=== PATIENT | female | born 1935 | race Caucasian/White ===

== ENCOUNTER 2017-12-02 10:31 | Outpatient (CLI) | payer MEDICARE, OTHER ==
--- NOTE | 2017-12-02 12:52 | ULT ---
PELVIC ULTRASOUND: CLINICAL HISTORY: Postmenopausal female with reported vaginal bleeding. TECHNIQUE: Borrego-scale and Doppler color-flow imaging performed of the pelvis with transabdominal imaging. FINDINGS: The uterus is atrophic. There is no obvious abnormal thickening of the endometrium, which is recorde d at 4 mm. The ovaries are not visualized. There is nonspecific linear increased echogenicity at th e region of the uterine fundus, nonspecific. IMPRESSION: 1. The endometrium measures 4 mm. No obvious abnormal thickening depicted. Given the history of va ginal bleeding, recommend gynecologic consultation. 2. Nonvisualization of the ovaries. 3. Nonspecific linear increased echogenicity at the expected region of the uterine fundus. This is nonanatomic in appearance and may relate to an artifact. Finding is not further characterized on the basis of this exam and is likely of doubtful clinical significance. POS: [facility]
== END 2017-12-02 10:32 | disposition home or self-care (01) ==
LOC: ULT 10:31
PROVIDERS: ATTEND Family Medicine
DX: N93.9 Abnormal uterine and vaginal bleeding, unspecified (principal)
CPT/HCPCS: 76856

== ENCOUNTER 2017-12-23 10:51 | Outpatient (CLI) | payer MEDICARE, OTHER | END 2017-12-23 10:52 | disposition home or self-care (01) | LOC: BICULT 10:51 | PROVIDERS: ATTEND Urology | DX: N28.1 Cyst of kidney, acquired (principal); R32 Unspecified urinary incontinence | CPT/HCPCS: 76770 ==

== ENCOUNTER 2018-06-13 10:11 | Inpatient (IN) | payer MEDICARE, OTHER ==
--- NOTE | 2018-06-13 11:08 | RAD ---
THREE VIEWS OF THE LEFT ANKLE: INDICATION: Fall with ankle pain and swelling. FINDINGS: There is a bimalleolar ankle fracture. The lateral malleolar fracture fragment is displaced posterio r and laterally 1 cortex width. The medial malleolar fracture fragment appears minimally displaced. No additional acute osseous abnormality is evident. IMPRESSION: Bimalleolar ankle fracture. POS: [facility]
[2018-06-13] MEDS ORDERED: Ketorolac Tromethamine 30 MG/ML VIAL ONE (11:17)
[2018-06-13 11:48] LABS: Hemoglobin 14.2 g/dL (12.0-16.0); Mean Corpuscular Hemoglobin 34.5 pg (27.0-31.0); Platelet Count 280 thou/uL (130-400); RBC Distribution Width 11.8 % (11.5-14.5); Red Blood Cell (RBC) Count 4.12 mill/uL (4.20-5.40); Reflex for Review?? YES; White Blood Cell (WBC) Count 44.4 thou/uL (4.8-10.8)
[2018-06-13 11:52] LABS: INR-International Normal Ratio 0.9; PTT 24.8 SEC (22.9-36.1); Prothrombin Time 12.5 SEC (12.0-14.7)
[2018-06-13 12:03] LABS: ALT (SGPT) 29 U/L (8-55); AST (SGOT) 26 U/L (5-34); Albumin 5.2 g/dL (3.4-4.8); Alkaline Phosphatase 152 U/L (40-150); Anion Gap 16 mmol/L (10-20); BUN (Urea Nitrogen) 22 mg/dL (9.8-20.1); Bilirubin, Total 0.7 mg/dL (0.2-1.2); Calc. Creatinine Clearance 0 mL/min (70-130); Calcium 10.6 mg/dL (7.8-10.44); Carbon Dioxide 24 mmol/L (23-31); Chloride 102 mmol/L (98-107); Estimated GFR-MDRD 32; Globulin 3.3 g/dL (2.4-3.5); Glucose 107 mg/dL (83-110); Potassium 4.9 mmol/L (3.5-5.1); Protein, Total 8.5 g/dL (6.0-8.3); Sodium 137 mmol/L (136-145)
[2018-06-13 12:21] LABS: Band 2 % (5-11); Lymphocytes 70 % (21-51); MDiff Complete? YES; Monocytes 1 % (0-10); Neutrophil 27 % (42-75)
--- NOTE | 2018-06-13 12:45 | RAD ---
AP VIEW OF THE CHEST: INDICATION: Preop. COMPARISON: Two views of the chest dated 11/30/07. FINDINGS: There is a tubular catheter traversing the right hemithorax which may reflect a ventriculoperitoneal shunt catheter. Chronic lung changes are stable. Mild cardiomegaly persists. No pleural effusion o r pneumothorax is evident. No acute osseous abnormality is evident. IMPRESSION: No definite acute cardiopulmonary abnormality. Small radiopaque catheter traversing the right hemith orax may be external to the patient related to tubing or may be reflective of ventriculoperitoneal ca theter. Recommend correlation. POS: [facility]
[2018-06-13] MEDS ORDERED: Dextrose 5% in Water 1,000 ML IV PRN (13:54)
[2018-06-13] MEDS ORDERED: Ondansetron HCl/PF 4 MG/2 ML Vial IVP PRN (13:54)
[2018-06-13] MEDS ORDERED: Dextrose 50% Abboject 50 ML SYRINGE SLOW IVP PRN (13:54)
[2018-06-13] MEDS ORDERED: Ondansetron ODT 4 MG TAB PO PRN (13:54)
[2018-06-13 15:11] VITALS: BMI 22.9
[2018-06-13] MEDS: Acetaminophen 1,000 MG in Premix Bag 1 BAG IVPB SCH ×2 (15:38→20:35)
[2018-06-13] MEDS ORDERED: Acetaminophen 1,000 MG in Premix Bag 1 BAG IVPB SCH (18:00)
[2018-06-13] MEDS: traMADol HCl 50 MG TAB PO PRN (18:26)
[2018-06-13] MEDS: Mirtazapine 15 MG TAB PO SCH (20:34)
[2018-06-13] MEDS: Lorazepam 1 MG TAB PO SCH (20:34)
[2018-06-13] MEDS ORDERED: Prevnar 13-Val Conj/PF 0.5 ML SYRINGE IM ONE (21:00)
--- NOTE | 2018-06-13 21:00 | CON ---
DATE OF CONSULTATION: 06/13/2018 CHIEF COMPLAINT: Left ankle pain. HISTORY OF PRESENT ILLNESS: Ms. Bailey is an 83-year-old female who was in the bathroom at her home. She lost her balance and fell. She twisted her ankle. She had immediate ankle pain. She has a hi story of CVA and has somewhat poor balance. She does not use a walker or cane; however. She lives i ndependently with her . 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 She has had a previous patellar fracture man y years ago. No other recent fracture or medical complication. She is comfortable. She has been sp linted. She is resting in bed. She has been admitted to the hospital by the General Surgery Trauma Service. PAST MEDICAL HISTORY: Normal pressure hydrocephalus, hypothyroidism, hypertension, lymphocytic leuke taylor, scoliosis and cerebrovascular accident. PAST SURGICAL HISTORY: Ventricular peritoneal shunt. PSYCHIATRIC HISTORY: Anxiety. SOCIAL HISTORY: The patient drinks alcohol occasionally. No tobacco, no drug use. ALLERGIES: To FENTANYL. FAMILY MEDICAL HISTORY: Noncontributory. REVIEW OF SYSTEMS: Positive for mild left ankle pain, otherwise negative 10-point review of systems. IMAGING DATA: X-rays of the left ankle demonstrate a bimalleolar ankle fracture. There is posterior displacement of the lateral malleolus and minimal displacement of the medial malleolus. Ankle mort ise is slightly widened. PHYSICAL EXAMINATION: VITAL SIGNS: Blood pressure 140/64, pulse is 66, respiratory rate 16, temperature is 97.5. GENERAL: She is alert, lying supine in no apparent distress. RESPIRATORY: Breathing comfortably. ABDOMEN: Soft, nontender, and nondistended. MUSCULOSKELETAL: The patient's left leg is splinted. She is able to flex and extend the toes. She has 2 second capillary refill. Splint is clean and dry. Upper extremities are atraumatic. IMPRESSION: Left bimalleolar ankle fracture in an elderly female. PLAN: At this point, the patient will be taken to the operating room for surgery tomorrow morning. We will plan for open reduction and internal fixation of the bimalleolar ankle fracture. Goal of elmo ирина will be to restore anatomic alignment and promote healing in an anatomic position. Risks have b een reviewed in detail. She should be n.p.o. at midnight. She will have antibiotic treatment and pr ophylaxis. She will have appropriate DVT prophylaxis. All questions were answered.
--- NOTE | 2018-06-13 22:07 | HP ---
DATE OF ADMISSION: 06/13/2018 REQUESTING PHYSICIAN: Dr. David. ATTENDING PHYSICIAN: Dr. Gamboa. CONSULTATIONS: Orthopedics, Dr. Mcgill. HISTORY OF PRESENT ILLNESS: Patient is an 83-year-old woman who was walking in her house t lu[place] when she lost her footing and slipped and rolled her left ankle. The patient attempted to relie ve her pain with [id number] medicines, ice and elevation, but was unable to ambulate, so she wa s brought to the emergency department by family members, where she underwent evaluation and examinati on and was noted to have a left lateral malleolus fracture. At which time, we were asked to evaluate the patient for admission and obtained Orthopedic consultation. ALLERGIES: FENTANYL. Family reports that the patient has hallucinations when given FENTANYL. CURRENT MEDICATIONS: Aspirin, atenolol, levothyroxine, ramipril, mirtazapine, and lorazepam. 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 SOCIAL HISTORY: Patient denies drug, tobacco, alcohol use, currently lives at home with her . , REVIEW OF SYSTEMS: Ten-point review of systems negative as otherwise stated. PHYSICAL EXAMINATION: VITAL SIGNS: Blood pressure 140/64, heart rate 66, respirations 16, oxygen saturation is 96% on room air, temperature is 97.5. GENERAL: Patient is resting comfortably in bed. She is awake, alert, and oriented. She does have i ntermittent expressive aphasia that the family members states normal after her stroke. HEENT: Head is normocephalic, atraumatic. Eyes: Extraocular motion intact. PERRLA bilaterally. E ars are atraumatic without discharge. Nose atraumatic without discharge. Oropharynx is clear. NECK: Nontender. Trachea is midline. No JVD. CHEST: Clear to auscultation with good inspiratory and expiratory effort. HEART: Regular rate and rhythm. ABDOMEN: Soft, flat, nontender with active bowel sounds. Pelvis is stable. EXTREMITIES: The left lower extremity was just placed in a splint by the emergency room physician. Her extremities are neurovascularly intact x4. BACK: Nontender and atraumatic. LABORATORY DATA: White blood cell count of 44.4, hemoglobin 14.2, hematocrit 41.9, platelets 280. S odium 137, potassium 4.9, chloride 102, CO2 of 24, BUN 22, creatinine 1.56, glucose 107. Total bilir ubin 0.7, AST 26, ALT 29, alkaline phosphatase 152, PTT 25, PT 13, INR 0.9. RADIOGRAPHS: AP chest shows no definite acute cardiopulmonary abnormality. Three views of the left ankle show a bimalleolar ankle fracture. ASSESSMENT AND PLAN: 1. Status post ground level fall. 2. Left bimalleolar fracture. 3. History of chronic lymphocytic leukemia. 4. History of hypertension. 5. History of expressive aphasia secondary to cerebrovascular accident. 6. Pain secondary to acute trauma. Plan will be to admit the patient to the surgical floor after discussion with Dr. Mcgill. Patient will be made n.p.o. after midnight tonight with an operative plan for tomorrow. He will see the pat ient once she reaches the surgical floor. The evaluation, examination, radiographic and laboratory f indings will be discussed with Dr. Gamboa after this dictation.
[2018-06-14] MEDS: Lorazepam 1 MG TAB PO SCH ×7 (00:55→23:04)
[2018-06-14] MEDS: traMADol HCl 50 MG TAB PO PRN ×3 (00:55→19:23)
[2018-06-14] MEDS: Sodium Chloride 0.9% 1,000 ML IV SCH ×3 (01:18→12:24)
[2018-06-14] MEDS: Acetaminophen 500 MG TAB PO SCH ×6 (02:18→20:48)
[2018-06-14] MEDS: Acetaminophen 1,000 MG in Premix Bag 1 BAG IVPB SCH ×2 (03:43→08:27)
[2018-06-14] MEDS: Atenolol 25 MG TAB PO SCH (05:47)
[2018-06-14] MEDS: Levothyroxine Sodium 100 MCG TAB PO SCH (05:47)
[2018-06-14 06:07] LABS: Anion Gap 12 mmol/L (10-20); BUN (Urea Nitrogen) 26 mg/dL (9.8-20.1); Calc. Creatinine Clearance 23 mL/min (70-130); Calcium 8.7 mg/dL (7.8-10.44); Carbon Dioxide 23 mmol/L (23-31); Chloride 105 mmol/L (98-107); Estimated GFR-MDRD 31; Glucose 116 mg/dL (83-110); Potassium 4.6 mmol/L (3.5-5.1); Sodium 135 mmol/L (136-145)
[2018-06-14 07:30] LABS: Band 5 % (5-11); Eosinophils 2 % (0-10); Hemoglobin 10.6 g/dL (12.0-16.0); Lymphocytes 47 % (21-51); MDiff Complete? YES; Macrocytosis SLIGHT = 6-15 cells (100X) (0-5/hpf); Mean Corpuscular HGB CONC 33.3 g/dL (32.0-36.0); Mean Corpuscular Hemoglobin 33.9 pg (27.0-31.0); Mean Platelet Volume 7.3 fL (7.4-10.4); Monocytes 3 % (0-10); Neutrophil 43 % (42-75); PLT Morphology Comment Appears Adequate; Platelet Count 198 thou/uL (130-400); RBC Distribution Width 11.7 % (11.5-14.5); Red Blood Cell (RBC) Count 3.12 mill/uL (4.20-5.40); White Blood Cell (WBC) Count 24.7 thou/uL (4.8-10.8)
[2018-06-14] MEDS ORDERED: CEFAZOLIN/Water 2 GM/20 ML SYRINGE SLOW IVP SCH (08:00)
[2018-06-14] MEDS ORDERED: RAMIPRIL 1.25 MG PO SCH (09:00)
[2018-06-14] MEDS ORDERED: Dexmedetomidine 200 MCG/2 ML VIAL ONE (09:49)
[2018-06-14] MEDS ORDERED: CEFAZOLIN/Water 2 GM/20 ML SYRINGE ONE (09:56)
[2018-06-14] MEDS: Mirtazapine 15 MG TAB PO SCH ×2 (10:12→20:48)
[2018-06-14] MEDS ORDERED: Promethazine HCl 25 MG/ML VIAL SLOW IVP PRN (10:54)
[2018-06-14] MEDS ORDERED: Promethazine HCl 25 MG/ML VIAL IM PRN (10:54)
[2018-06-14] MEDS ORDERED: Morphine Sulfate 2 MG/ML SYRINGE SLOW IVP PRN (10:54)
[2018-06-14] MEDS ORDERED: Ondansetron HCl/PF 4 MG/2 ML Vial IVP PRN (10:54)
--- NOTE | 2018-06-14 11:13 | OP ---
DATE OF PROCEDURE: 06/14/2018 OPERATION: Open reduction and internal fixation of left bimalleolar ankle fracture. PREOPERATIVE DIAGNOSIS: Left displaced bimalleolar ankle fracture. POSTOPERATIVE DIAGNOSIS: Left displaced bimalleolar ankle fracture. COMPLICATIONS: None. ESTIMATED BLOOD LOSS: Minimal. SURGEON: Lee Mcgill M.D. DIRECTOR MEDICAID: Noah Rodríguez PA-C. IMPLANTS: Synthes 1/3rd tubular locking plate with 4.0 partially threaded screw. INDICATIONS: Ms. Baliey is an 83-year-old female who has fallen. She fractured her left ankle. She was indicated for open reduction and internal fixation to restore anatomic alignment and promote hea ling. Risks have been reviewed in detail. She has elected to proceed with the operation. DESCRIPTION OF PROCEDURE: Ms. Bailey was identified in the preoperative holding area. Her correct e xtremity was marked. She was carried to the operating room. She was positioned supine. General ane sthesia was induced. A multidisciplinary timeout was performed. The left lower extremity was preppe d and draped in sterile fashion. We began the procedure with a lateral approach to the distal fibula. We dissected down to the bony l evel. The fracture was reduced. We checked this with intraoperative x-ray. We then applied Synthes 1/3rd tubular locking plate. This was precontoured. We placed multiple locking screws proximally a nd distally. We took images confirming this and was placed appropriately. At this point, we made a small incision just distal to the medial malleolus. We placed a 4.0 partial ly threaded screw across the medial malleolar fracture which was well reduced. Again, we took final images in orthogonal planes. We then thoroughly irrigated. We closed with 0 Vicryl suture, 2-0 Vicr yl suture and nylon for the skin. A sterile dressing and a splint was placed. The patient was taken to the recovery room in good condition.
[2018-06-14] MEDS: hydrALAZINE 20 MG/ML VIAL SLOW IVP PRN (12:25)
--- NOTE | 2018-06-14 13:00 | RAD ---
TWO VIEW LEFT ANKLE SERIES: INDICATION: Fracture fixation. FINDINGS: Metallic side plate and screw fixation of distal fibula present with near anatomic alignment. Underl olu fracture lucency is seen. There is a single corticated screw traversing the medial malleolus. Mortise is appropriate in alignment. IMPRESSION: Postoperative fixation of the distal tibia and fibula. POS: [facility]
[2018-06-14] MEDS ORDERED: Ondansetron HCl/PF 4 MG/2 ML Vial ONE (15:39)
[2018-06-14] MEDS ORDERED: PROPOFOL 200 MG/20 ML VIAL ONE (15:39)
[2018-06-14] MEDS ORDERED: ePHEDrine/0.9% NaCl/PF SYRINGE 50 mg/10 ml ONE (15:39)
[2018-06-14] MEDS ORDERED: Lidocaine 1% PF 5 ML VIAL ONE (15:39)
[2018-06-14] MEDS: CEFAZOLIN/Water 2 GM/20 ML SYRINGE SLOW IVP SCH (17:57)
[2018-06-15] MEDS: Sodium Chloride 0.9% 1,000 ML IV SCH ×2 (01:36→11:41)
[2018-06-15] MEDS: Acetaminophen 500 MG TAB PO SCH ×7 (01:37→20:09)
[2018-06-15] MEDS: CEFAZOLIN/Water 2 GM/20 ML SYRINGE SLOW IVP SCH (01:59)
[2018-06-15] MEDS: Lorazepam 1 MG TAB PO SCH ×6 (02:06→20:10)
[2018-06-15] MEDS: Levothyroxine Sodium 100 MCG TAB PO SCH (05:32)
[2018-06-15] MEDS: Mirtazapine 15 MG TAB PO SCH ×2 (08:16→20:09)
[2018-06-15] MEDS: Atenolol 25 MG TAB PO SCH (08:16)
[2018-06-15] MEDS ORDERED: Amiodarone In Dextrose 200 ML IVPB SCH (11:04)
[2018-06-15 11:30] LABS: Anion Gap 16 mmol/L (10-20); BUN (Urea Nitrogen) 13 mg/dL (9.8-20.1); Calc. Creatinine Clearance 30 mL/min (70-130); Calcium 9.3 mg/dL (7.8-10.44); Carbon Dioxide 17 mmol/L (23-31); Chloride 103 mmol/L (98-107); Estimated GFR-MDRD 41; Glucose 106 mg/dL (83-110); Magnesium 1.9 mg/dL (1.6-2.6); Phosphorus 2.5 mg/dL (2.3-4.7); Potassium 4.7 mmol/L (3.5-5.1); Sodium 131 mmol/L (136-145)
[2018-06-15] MEDS ORDERED: Amiodarone HCl 150 MG in Dextrose 5% in Water 100 ML IVPB SCH (11:30)
[2018-06-15 11:32] LABS: Hemoglobin 12.4 g/dL (12.0-16.0); Mean Corpuscular HGB CONC 32.9 g/dL (32.0-36.0); Mean Corpuscular Hemoglobin 33.6 pg (27.0-31.0); Mean Platelet Volume 7.1 fL (7.4-10.4); Platelet Count 240 thou/uL (130-400); Red Blood Cell (RBC) Count 3.69 mill/uL (4.20-5.40); White Blood Cell (WBC) Count 53.7 thou/uL (4.8-10.8)
[2018-06-15 11:38] LABS: Band 6 % (5-11); Hypersemented Neutrophil SLIGHT; Lymphocytes 71 % (21-51); MDiff Complete? YES; Monocytes 3 % (0-10); Neutrophil 18 % (42-75); RBC Morphology Normal; Reactive Lymphocytes 2 % (0-10); Reflex for Review?? NO
[2018-06-15] MEDS: Amiodarone HCl 450 MG, Admixture Fee 1 EACH in Dextrose 5% in Water 250 ML IVPB SCH ×2 (11:41→23:12)
[2018-06-15 12:20] LABS: Anion Gap 12 mmol/L (10-20); BUN (Urea Nitrogen) 12 mg/dL (9.8-20.1); Calc. Creatinine Clearance 34 mL/min (70-130); Calcium 9.1 mg/dL (7.8-10.44); Carbon Dioxide 21 mmol/L (23-31); Chloride 103 mmol/L (98-107); Estimated GFR-MDRD 48; Glucose 105 mg/dL (83-110); Potassium 4.5 mmol/L (3.5-5.1); Sodium 131 mmol/L (136-145)
[2018-06-15] MEDS: traMADol HCl 50 MG TAB PO PRN (15:33)
[2018-06-15] MEDS: hydrALAZINE 20 MG/ML VIAL SLOW IVP PRN (18:14)
[2018-06-16] MEDS: Lorazepam 1 MG TAB PO SCH ×6 (00:11→19:44)
[2018-06-16] MEDS: Acetaminophen 500 MG TAB PO SCH ×6 (00:11→19:44)
--- NOTE | 2018-06-16 01:21 | PRG ---
DATE OF SERVICE: 06/15/2018 SUBJECTIVE: Ms. Bailey is currently on the [facility]. This morning, she started having a racing heartbea t. EKG showed that she was in atrial fibrillation with RVR, at which time she was moved over to the [facility] and had a bolus of amiodarone and then a drip started. While there, she also had in and out cat heter done which relieved approximately 800 mL of urine. This may very well have been the trigger fo r her atrial fibrillation with RVR, but she converted to a sinus rhythm and was rate controlled relat ively quickly on the [facility]. She will remain there for 24 hours to ensure that she does not convert ba ck into her arrhythmia. Otherwise, the patient states that her pain is controlled. She is toleratin g a diet. She underwent her open reduction and internal fixation yesterday and had no issues. PHYSICAL EXAMINATION: VITAL SIGNS: Temperature is 97.5, heart rate 88, blood pressure 148/84, respirations 18, and oxygen saturation 92% on room air. GENERAL: The patient is resting comfortably in bed. She is awake and appropriate. Denies any pain. She states that she tolerated her diet this morning. HEENT: Unremarkable. LUNGS: Clear to auscultation with good inspiratory and expiratory effort. HEART: Primarily a regular rate and rhythm. ABDOMEN: Soft, flat, nontender with active bowel sounds. Pelvis is stable. EXTREMITIES: Extremities are neurovascularly intact x4. Her left lower extremity has a splint that is clean, dry, and intact. LABORATORY FINDINGS: White blood cell count 53.7, which is consistent with her CLL, hemoglobin 12.4, hematocrit 37.7, platelets 240. Sodium 131, potassium 4.5, chloride 103, CO2 of 21, BUN 12, creatin ine 1.09, glucose 105, magnesium 1.9, phosphorus 2.5. There are no radiographs to review this eugenia vivar. ASSESSMENT: 1. Status post ground level fall. 2. Status post left ankle fracture, status post open reduction and internal fixation of same. 3. Atrial fibrillation with rapid ventricular response, resolved on amiodarone. PLAN: Plan will be to continue supportive care, closely monitor heart rhythm, and [facility] and discussed placement with family. The evaluation [facility] done [facility] Dr[facility] Gamboa during rounds this morning.
[2018-06-16] MEDS: Sodium Chloride 0.9% 1,000 ML IV SCH ×3 (01:23→14:09)
[2018-06-16 03:58] LABS: Anion Gap 12 mmol/L (10-20); BUN (Urea Nitrogen) 11 mg/dL (9.8-20.1); Calc. Creatinine Clearance 36 mL/min (70-130); Calcium 8.8 mg/dL (7.8-10.44); Carbon Dioxide 20 mmol/L (23-31); Chloride 101 mmol/L (98-107); Estimated GFR-MDRD 52; Glucose 108 mg/dL (83-110); Magnesium 1.6 mg/dL (1.6-2.6); Phosphorus 2.1 mg/dL (2.3-4.7); Sodium 129 mmol/L (136-145)
[2018-06-16 05:30] LABS: Band 1 % (5-11); Eosinophils 1 % (0-10); Hemoglobin 10.8 g/dL (12.0-16.0); Lymphocytes 49 % (21-51); MDiff Complete? YES; Macrocytosis SLIGHT = 6-15 cells (100X) (0-5/hpf); Mean Corpuscular HGB CONC 33.5 g/dL (32.0-36.0); Mean Platelet Volume 7.1 fL (7.4-10.4); Monocytes 5 % (0-10); Neutrophil 44 % (42-75); Platelet Count 180 thou/uL (130-400); RBC Distribution Width 11.9 % (11.5-14.5); Red Blood Cell (RBC) Count 3.19 mill/uL (4.20-5.40); White Blood Cell (WBC) Count 27.6 thou/uL (4.8-10.8)
[2018-06-16] MEDS: Levothyroxine Sodium 100 MCG TAB PO SCH (06:15)
[2018-06-16] MEDS: Mirtazapine 15 MG TAB PO SCH ×2 (07:41→19:43)
[2018-06-16] MEDS: Atenolol 25 MG TAB PO SCH (07:44)
[2018-06-16] MEDS ORDERED: Magnesium Sulfate 3 GM in Sodium Chloride 0.9% 100 ML IVPB SCH (08:30)
--- NOTE | 2018-06-16 12:34 | EKG ---
Test Reason : Blood Pressure : / mmHG Vent. Rate : 154 BPM Atrial Rate : 081 BPM P-R Int : 000 ms QRS Dur : 070 ms QT Int : 292 ms P-R-T Axes : 000 069 -54 degrees QTc Int : 467 ms Atrial fibrillation with rapid ventricular response with premature ventricular or aberrantly conducte d complexes Posterior infarct , age undetermined Abnormal ECG No previous ECGs available Confirmed by KATRIN JORGENSEN, DR. Hernandez ([id number]) on 06/16/2018 12:34:07 PM Referred By: STEVE CROCKETT Confirmed By:DR. David WILKES MD
--- NOTE | 2018-06-16 19:23 | PRG ---
DATE OF ADMISSION: 06/13/2018 DATE OF SERVICE: 06/15/2018 SUBJECTIVE: Ms. Bailey remains on the IMCU floor. She has no complaints this morning. She has a regular rate and rhythm with no evidence of atrial fibrillation with RVR. She is status post open reduction and internal fixation to the left ankle day 2. Her amiodarone drip has been discontinued at this time. We have restarted all her home medications and the patient reports she has been eating okay. PHYSICAL EXAMINATION: VITAL SIGNS: Blood pressure 158/88, pulse 88, respirations 17, SpO2 97% on room air, temperature 99.8. GENERAL: Patient is resting comfortably in bed. Family is at bedside. She is awake and alert and appropriate. Denies any pain at this time. HEENT: Unremarkable. CHEST: Lungs clear to auscultation with good inspiratory and expiratory effort. CARDIOVASCULAR: Primarily a regular rate and rhythm. ABDOMEN: Soft, active bowel sounds. EXTREMITIES: She is neurovascularly intact x4. She has a left lower extremity splint that is clean, dry, and intact. LABORATORY DATA: WBC 27.6, RBC 3.17, hemoglobin 10.8, hematocrit 32.4, MCV 101.0, MCH 34.0, platelets 180. Sodium 129, potassium 4.0, chloride 101, CO2 of 20, anion gap 12, BUN 11, creatinine 1.02, glucose 108, calcium 8.8, phosphorus 2.1, magnesium 1.6. IMPRESSION: 1. Status post ground level fall. 2. Status post left ankle fracture with post open reduction and internal fixation. 3. Resolved atrial fibrillation with rapid ventricular response. PLAN: Continue supportive care, closely monitor heart rate and rhythm. Continue physical therapy, occupational therapy. Continue patient's home medications for blood pressure. Continue to restrict free water. We will replace her magnesium. Case management has been contacted for rehabilitation placement. The patient is stable enough at this time to move to surgical floor. SHONDA
[2018-06-16] MEDS ORDERED: Amiodarone In Dextrose 200 ML IVPB SCH (19:37)
[2018-06-16] MEDS: Amiodarone HCl 450 MG, Admixture Fee 1 EACH in Dextrose 5% in Water 250 ML IVPB SCH (20:20)
[2018-06-16 20:36] LABS: Anion Gap 12 mmol/L (10-20); BUN (Urea Nitrogen) 13 mg/dL (9.8-20.1); Calc. Creatinine Clearance 33 mL/min (70-130); Calcium 8.5 mg/dL (7.8-10.44); Carbon Dioxide 20 mmol/L (23-31); Chloride 105 mmol/L (98-107); Estimated GFR-MDRD 46; Glucose 108 mg/dL (83-110); Magnesium 2.4 mg/dL (1.6-2.6); Potassium 3.5 mmol/L (3.5-5.1); Sodium 133 mmol/L (136-145)
[2018-06-16 20:36] LABS: ALT (SGPT) 21 U/L (8-55); AST (SGOT) 48 U/L (5-34); Albumin 3.8 g/dL (3.4-4.8); Alkaline Phosphatase 118 U/L (40-150); Bilirubin, Direct 0.2 mg/dL (0.1-0.3); Bilirubin, Total 0.5 mg/dL (0.2-1.2); Protein, Total 6.3 g/dL (6.0-8.3)
[2018-06-16 20:38] LABS: Phosphorus 1.9 mg/dL (2.3-4.7)
[2018-06-16] MEDS ORDERED: Potassium Phosphate 30 MMOL in Sodium Chloride 0.9% 250 ML 250 ML IVPB SCH (20:45)
[2018-06-17] MEDS: Lorazepam 1 MG TAB PO SCH ×6 (00:07→19:59)
[2018-06-17] MEDS: Levothyroxine Sodium 100 MCG TAB PO SCH (04:12)
[2018-06-17] MEDS: Acetaminophen 500 MG TAB PO SCH ×6 (04:12→19:59)
[2018-06-17] MEDS: Sodium Chloride 0.9% 1,000 ML IV SCH ×2 (04:54→21:10)
[2018-06-17] MEDS: Amiodarone HCl 450 MG, Admixture Fee 1 EACH in Dextrose 5% in Water 250 ML IVPB SCH (04:57)
[2018-06-17 05:19] LABS: Anion Gap 16 mmol/L (10-20); BUN (Urea Nitrogen) 12 mg/dL (9.8-20.1); Calc. Creatinine Clearance 34 mL/min (70-130); Calcium 8.2 mg/dL (7.8-10.44); Carbon Dioxide 18 mmol/L (23-31); Chloride 106 mmol/L (98-107); Estimated GFR-MDRD 48; Glucose 120 mg/dL (83-110); Magnesium 2.2 mg/dL (1.6-2.6); Potassium 4.1 mmol/L (3.5-5.1); Sodium 136 mmol/L (136-145)
[2018-06-17 06:25] LABS: Band 1 % (5-11); Hemoglobin 10.4 g/dL (12.0-16.0); Lymphocytes 73 % (21-51); MDiff Complete? YES; Mean Corpuscular HGB CONC 33.6 g/dL (32.0-36.0); Mean Corpuscular Hemoglobin 34.3 pg (27.0-31.0); Monocytes 2 % (0-10); Neutrophil 24 % (42-75); Platelet Count 183 thou/uL (130-400); RBC Distribution Width 12.1 % (11.5-14.5); Red Blood Cell (RBC) Count 3.03 mill/uL (4.20-5.40); White Blood Cell (WBC) Count 30.2 thou/uL (4.8-10.8)
[2018-06-17] MEDS: Atenolol 25 MG TAB PO SCH (08:07)
[2018-06-17] MEDS: Mirtazapine 15 MG TAB PO SCH ×2 (08:08→19:59)
[2018-06-17] MEDS ORDERED: Aspirin 81 mg Enteric Coated Tablet PO SCH (09:00)
[2018-06-17] MEDS: Amiodarone 200 MG TAB PO SCH (09:38)
--- NOTE | 2018-06-17 10:30 | RAD ---
UPRIGHT PORTABLE CHEST 1 VIEW: Date: 06/17/18 HISTORY: 83-year-old female with history of dyspnea. COMPARISON: 06/13/18. FINDINGS: There is evidence for bilateral vascular congestion with bilateral pleural effusions and some increas ed linear and interstitial markings bilaterally, probably representing some mild interstitial edema. These changes have developed or worsened since the prior 06/13/18 study. No overt confluent process. IMPRESSION: Evidence for bilateral vascular congestion and minimal interstitial edema and pleural effusions. Thes e changes have developed or worsened since the prior study. Atherosclerosis of the aorta with ectasia . POS: [facility]
[2018-06-17 12:34] LABS: Bilirubin Negative (Negative); Blood, Urine Small (Negative); Clarity CLEAR (Clear); Glucose, Urine (Dipstick) Negative (Negative); Leukocyte Negative (Negative); Nitrite Negative (Negative); Protein, Urine (Dipstick) 100 mg/dL (Neg-Trace); Urobilinogen 0.2 mg/dL (0.2-1.0); pH, Urine 6.5 (5.0-9.0)
[2018-06-17 12:36] LABS: Bacteria/HPF None Seen HPF (None Seen); Hyaline Casts/LPF 0-3 HYALINE CAST LPF (0-3 Hyaline); Pathc Cast-AUWi Flag 0.14 (0-2.49); RBC/HPF 0-3 HPF (0-3); Squamous Epithelial None Seen HPF (0-3); WBC/HPF None Seen HPF (0-3)
--- NOTE | 2018-06-17 15:38 | EKG ---
Test Reason : STAT Blood Pressure : / mmHG Vent. Rate : 106 BPM Atrial Rate : 166 BPM P-R Int : 000 ms QRS Dur : 088 ms QT Int : 384 ms P-R-T Axes : 000 041 -43 degrees QTc Int : 510 ms Atrial fibrillation with rapid ventricular response with premature ventricular or aberrantly conducte d complexes Abnormal ECG When compared with ECG of 15-JUN-2018 10:07, No significant change was found Confirmed by KATRIN JORGENSEN, . S. (4) on 06/17/2018 3:38:24 PM Referred By: ANGI Confirmed By:DR. David WILKES MD
[2018-06-17] MEDS: Aspirin 81 mg Enteric Coated Tablet PO SCH (19:59)
[2018-06-17] MEDS ORDERED: Furosemide 20 MG/2 ML VIAL SLOW IVP SCH (20:30)
[2018-06-18] MEDS: Acetaminophen 500 MG TAB PO SCH ×6 (00:17→21:01)
[2018-06-18] MEDS: Lorazepam 1 MG TAB PO SCH ×6 (00:17→21:01)
[2018-06-18] MEDS: Sodium Chloride 0.9% 1,000 ML IV SCH (04:08)
[2018-06-18] MEDS: Levothyroxine Sodium 100 MCG TAB PO SCH (04:08)
[2018-06-18 05:12] LABS: Anion Gap 17 mmol/L (10-20); BUN (Urea Nitrogen) 13 mg/dL (9.8-20.1); Calc. Creatinine Clearance 35 mL/min (70-130); Calcium 9.3 mg/dL (7.8-10.44); Carbon Dioxide 19 mmol/L (23-31); Chloride 103 mmol/L (98-107); Estimated GFR-MDRD 50; Glucose 117 mg/dL (83-110); Magnesium 1.7 mg/dL (1.6-2.6); Potassium 3.6 mmol/L (3.5-5.1); Sodium 135 mmol/L (136-145)
[2018-06-18] MEDS ORDERED: Amiodarone HCl 450 MG, Admixture Fee 1 EACH in Dextrose 5% in Water 250 ML IVPB SCH (06:00)
[2018-06-18 08:56] LABS: Hemoglobin 11.1 g/dL (12.0-16.0); Lymphocytes 75 % (21-51); MDiff Complete? YES; Macrocytosis SLIGHT = 6-15 cells (100X) (0-5/hpf); Mean Corpuscular HGB CONC 33.6 g/dL (32.0-36.0); Monocytes 1 % (0-10); Neutrophil 24 % (42-75); PLT Morphology Comment Appears Adequate; Platelet Count 234 thou/uL (130-400); Polychromasia SLIGHT = 2-3 cells (100X) (0-2/hpf); RBC Distribution Width 12.3 % (11.5-14.5); Red Blood Cell (RBC) Count 3.27 mill/uL (4.20-5.40); White Blood Cell (WBC) Count 39.5 thou/uL (4.8-10.8)
[2018-06-18] MEDS: Aspirin 81 mg Enteric Coated Tablet PO SCH ×2 (09:55→21:01)
[2018-06-18] MEDS: Mirtazapine 15 MG TAB PO SCH ×2 (09:55→21:01)
[2018-06-18] MEDS: Atenolol 25 MG TAB PO SCH (09:55)
[2018-06-18] MEDS: Amiodarone 200 MG TAB PO SCH (09:55)
[2018-06-18] MEDS ORDERED: Senokot 8.6 MG TAB PO PRN (10:27)
[2018-06-18] MEDS ORDERED: Magnesium Sulfate 3 GM in Sodium Chloride 0.9% 100 ML IVPB SCH (10:30)
[2018-06-18] MEDS ORDERED: Potassium Phosphate 30 MMOL, Magnesium Sulfate 3 GM in Sodium Chloride 0.9% 500 ML IVPB SCH (10:30)
--- NOTE | 2018-06-18 12:21 | EKG ---
Test Reason : Blood Pressure : / mmHG Vent. Rate : 070 BPM Atrial Rate : 070 BPM P-R Int : 114 ms QRS Dur : 082 ms QT Int : 404 ms P-R-T Axes : 032 -02 -06 degrees QTc Int : 436 ms Sinus rhythm with Premature atrial complexes Possible Inferior infarct , age undetermined Abnormal ECG Confirmed by NGHIA JORGENSEN, KIKE (12), magazine editor SANIA FISHER ([id number]) on 06/18/2018 12:21:20 PM Referred By: Confirmed By:KIKE AGRAWAL MD
[2018-06-18] MEDS ORDERED: Furosemide 20 MG/2 ML VIAL SLOW IVP SCH (17:45)
--- NOTE | 2018-06-18 18:53 | PRG ---
DATE OF SERVICE: 06/18/2018 SUBJECTIVE: The patient is currently on the telemetry unit. Yesterday, she was moved to the medicin e floor, but she was not there long before she converted back to atrial fibrillation with rapid ventr icular response. She was moved to the telemetry floor where she restarted her amiodarone. This morn ing during rounds, she remains in atrial fibrillation with rapid ventricular response rate of approxi mately 120. She states that her pain is controlled and she is tolerating a diet. She was also diure sed once yesterday. The patient had a history of urinary retention during this hospital stay. There is concern that she may be retaining again even though she is using the bathroom when she may not be completely emptying her bladder, so we will bladder scan her to assess this, this may be contributin g to some of her issues. PHYSICAL EXAMINATION: VITAL SIGNS: Temperature is 97.6, heart rate 123, blood pressure 117/62, respirations 18, oxygen sat uration 92% on room air. GENERAL: Patient is resting comfortably in bed. She appears in no distress. She is awake and appro priate, though at times she will have wandering thoughts. The family members at bedside state that s he has been doing this somewhat more frequently lately. HEENT: Unremarkable. LUNGS: Lungs have scant rhonchi bilaterally with moderate inspiratory and expiratory effort. HEART: Irregularly irregular, consistent with her atrial fibrillation. ABDOMEN: Soft, flat, nontender with active bowel sounds. EXTREMITIES: Neurovascularly intact. The left lower extremity is in splint, clean, dry, and intact. The right lower extremity may have some slight pitting edema. LABORATORY DATA: White blood cell count 39.5, hemoglobin 11.1, hematocrit 33.1, platelets 234. Sodi um 135, potassium 3.6, chloride 103, CO2 is 19, BUN 13, creatinine 1.05, glucose 117, magnesium 1.7, phosphorus 2.0. No radiographs to review this morning. ASSESSMENT AND PLAN: 1. Status post ground-level fall. 2. Status post open reduction internal fixation of left ankle fracture. 3. Atrial fibrillation with rapid ventricular response. Plan will be to continue supportive care, remain on telemetry. We will overlap her IV and p.o. amiod radames and due to the fact that the patient has lost an IV access again and may not have gotten much o f her amiodarone, we will request that she gets a midline placed this morning. Patient will also hav e a free water restriction and replace her electrolytes. The evaluation and examination were done [facility] Dr. Gamboa during rounds this morning.
[2018-06-18] MEDS ORDERED: Fleet Enema 133 ML BOT FS SCH (19:15)
[2018-06-18] MEDS ORDERED: Fleet Enema 133 ML BOT PR SCH (19:15)
[2018-06-18] MEDS ORDERED: Fleet Enema 133 ML BOT PR PRN (21:00)
--- NOTE | 2018-06-18 22:34 | CON ---
DATE OF CONSULTATION: 06/18/2018 requesting me to see the patient in-house due to acute urinary retention. 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 She was initially seen by me back in October 2017, which she had mild incomplete void PVR of 80-100 mL She was utilizing 2-3 pull ups per day with urinary frequency 5 times, nocturia 2-3 times. She was given a trial of Myrbetriq 25 mg one p.o. daily. She has had no significant urethral stenosis as she had catheters in the past with no significant issues for straight catheterization. When I last saw her in 03/2018, she desired to continue current medical regimen with no significant postvoid residual concern. Prior renal ultrasound demonstrated mild prominence of the right renal pelvis with no evidence of hydronephrosis. They declined further workup as there was no hydronephrosis and her advanced age. The patient currently admitted under Trauma Service as she sustained a fall, status post left ORIF of her ankle. The patient currently resting comfortably. Per nursing staff and patient's family, the patient had an indwelling Bella catheter, catheter removed for a voiding trial, however, due to 800 mL of post-void residual, indwelling Bella catheter was replaced by Trauma Service, currently draining clear yellow urine. Urine culture negative. The patient has not had a bowel movement since 2017. Patient currently is resting comfortably, appears drowsy, difficult to arouse. PAST MEDICAL HISTORY: 1. Hypertension, hypothyroidism, chronic lymphocytic leukemia, glaucoma, osteopenia, stomach ulcers, aspirin induced osteopenia, vulvar lichen sclerosus , chronic back pain, depression, normal pressure hydrocephalus, status post shunt, chronic kidney disease, mild CVA 2015. 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 CURRENT MEDICATIONS: Include acetaminophen, amiodarone, baby aspirin, atenolol , Lasix, hydralazine, levothyroxine, Remeron, Zofran, tramadol, Senokot, MiraLax. She is not on her Myrbetriq. Allergic to CODEINE SULFATE. PHYSICAL EXAMINATION: VITAL SIGNS: Temperature 97, heart rate 123, 92% on room air, blood pressure 170/62. PVR 800 mL, currently draining clear yellow urine with an indwelling Bella catheter. GENERAL: The patient is resting, sleeping. Family at bedside. HEART: Tachycardic. LUNGS: Clear. Decreased inspiratory effort. ABDOMEN: Protuberant. No bruits, no suprapubic tenderness. No CVA tenderness. GENITOURINARY: Bella catheter adequately secured with clear concentrated urine. Significant vaginal atrophy is noted. On bimanual exam, she does have moderate amount of hard stool in her rectal vault consistent with constipation. EXTREMITIES: Left lower extremity cast noted. PERTINENT LABORATORY AND IMAGING: White count 39, hemoglobin 11, platelet 234. Coagulation profile within normal limits. Creatinine 1.0. UA demonstrates 100 protein, 0-3 RBCs, no WBCs, no bacteria. Culture preliminary negative. IMPRESSION/PLAN: Ms. 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 This has been discontinued. She is status post right ORIF with urinary retention, new event. Due to significantly elevated postvoid residual of 800 mL, recommend indwelling Bella catheter for bladder rest, as there is over-distention injury. Due to significant PVR, indwelling Bella catheter for a week is advised. She certainly can be discharged with an indwelling Bella catheter to rehab and repeat voiding trial may be performed in a week. It is important regarding aggressive bowel regimen. Fleets enema p.r.n. as advised. informed. SHNODA
[2018-06-19] MEDS: Lorazepam 1 MG TAB PO SCH ×5 (01:20→17:02)
[2018-06-19] MEDS: Acetaminophen 500 MG TAB PO SCH ×5 (01:20→17:02)
[2018-06-19] MEDS: Levothyroxine Sodium 100 MCG TAB PO SCH (05:00)
[2018-06-19 05:15] LABS: Anion Gap 13 mmol/L (10-20); BUN (Urea Nitrogen) 19 mg/dL (9.8-20.1); Calc. Creatinine Clearance 26 mL/min (70-130); Calcium 8.5 mg/dL (7.8-10.44); Carbon Dioxide 23 mmol/L (23-31); Chloride 106 mmol/L (98-107); Estimated GFR-MDRD 36; Glucose 107 mg/dL (83-110); Magnesium 2.7 mg/dL (1.6-2.6); Phosphorus 4.4 mg/dL (2.3-4.7); Sodium 138 mmol/L (136-145)
[2018-06-19 05:20] LABS: Band 1 % (5-11); Eosinophils 2 % (0-10); Hemoglobin 10.2 g/dL (12.0-16.0); Lymphocytes 64 % (21-51); MDiff Complete? YES; Mean Corpuscular HGB CONC 33.1 g/dL (32.0-36.0); Mean Corpuscular Hemoglobin 34.2 pg (27.0-31.0); Mean Platelet Volume 7.4 fL (7.4-10.4); Monocytes 4 % (0-10); Neutrophil 29 % (42-75); PLT Morphology Comment Appears Adequate; Platelet Count 232 thou/uL (130-400); RBC Distribution Width 12.7 % (11.5-14.5); Red Blood Cell (RBC) Count 2.98 mill/uL (4.20-5.40); White Blood Cell (WBC) Count 37.3 thou/uL (4.8-10.8)
[2018-06-19] MEDS ORDERED: Bisacodyl 10 MG SUPP PR PRN (08:01)
[2018-06-19] MEDS ORDERED: Polyethylene Glycol 3350 17 GM Packet PO SCH (09:00)
--- NOTE | 2018-06-19 09:01 | PRG ---
DATE OF SERVICE: 06/19/2018 SUBJECTIVE: The patient is sleeping, easily arousable, 2 daughters at bedside. PHYSICAL EXAMINATION: VITAL SIGNS: Stable. She is afebrile. I's and O's are 240 in, 1000 out. ABDOMEN: Soft, nontender, nondistended. GENITOURINARY: Catheter draining clear dilute urine. LABORATORY DATA: White count 37, hemoglobin 10, platelet 232, creatinine is 1.4 , baseline creatinine variable from 1.0-1.5. IMPRESSION AND PLAN: Ms. Bailey is a pleasant 83-year-old female who presented to my office due to overactive bladder, previously on Myrbetriq. This has been held since admission. 1. History of chronic lymphocytic leukemia. 2. Status post open reduction and internal fixation, fall. 3. History of chronic constipation 4 Postop urinary retention with postvoid residual of 800 mL. Due to significant postvoid residual and overdistension injury, indwelling Bella catheter will remain in situ. Daughters relate chronic constipation, on Dulcolax [place] daily. I did provide Fleets enema with no significant bm. . will repeat this a.m. Strict bowel regimen is advised as constipation can exacerbate urinary retention. No change in disposition, continue indwelling Bella catheter, discharged to rehab when medically stable, patient can be discharged to rehab with indwelling Bella catheter, recommend voiding trial next week, which can be initiated in rehabilitation. Daughter is instructed to call my office when the patient has disposition from rehab for followup appointment. Dr. Lewis is covering me this weekend for p.r.n. issues. MTDIan
[2018-06-19] MEDS: Atenolol 25 MG TAB PO SCH (09:24)
[2018-06-19] MEDS: Mirtazapine 15 MG TAB PO SCH (09:28)
[2018-06-19] MEDS: Amiodarone 200 MG TAB PO SCH (09:28)
[2018-06-19] MEDS: Aspirin 81 mg Enteric Coated Tablet PO SCH (09:28)
[2018-06-19 15:41] VITALS: BP 132/66; TEMP 98.7
== END 2018-06-19 19:31 | DRG 493 ==
LOC: ERS 10:11 → SJJU 13:54 → IMCU/EMU 06-15 10:54 → T4-A 06-16 12:20 → 2NO 06-16 19:33
PROVIDERS: ADMIT Surgery; ATTEND Surgery
PROC: 0QSK04Z Reposition Left Fibula with Internal Fixation Device, Open Approach (ICD-10-PCS; principal; 2018-06-14)
PROC: 0QSH04Z Reposition Left Tibia with Internal Fixation Device, Open Approach (ICD-10-PCS; 2018-06-14)
DX: S82.842A Displaced bimalleolar fracture of left lower leg, initial encounter for closed fracture (principal); C91.10 Chronic lymphocytic leukemia of B-cell type not having achieved remission; I10 Essential (primary) hypertension; E03.9 Hypothyroidism, unspecified; G89.11 Acute pain due to trauma; K59.09 Other constipation; R33.9 Retention of urine, unspecified; I69.320 Aphasia following cerebral infarction; I48.91 Unspecified atrial fibrillation; Z88.5 Allergy status to narcotic agent; Z79.82 Long term (current) use of aspirin; Z79.899 Other long term (current) drug therapy; Z98.2 Presence of cerebrospinal fluid drainage device; W01.0XXA Fall on same level from slipping, tripping and stumbling without subsequent striking against object, initial encounter; Y92.019 Unspecified place in single-family (private) house as the place of occurrence of the external cause
CPT/HCPCS: 29515; 36415; 71045; 76001; 80048; 80053; 80076; 81003; 81015; 83735; 83880; 84100; 84443; 85025; 85060; 85610; 85730; 87086; 93005; 93010; 96374; C1713; G8978-GP-CM; G8979-GP-CL; G8987-GO-CL; G8988-GO-CK; G8996-GN-CI; G8997-GN-CI; J0131; J0282; J0360; J1885; J1940; J2001; J2270; J2405; J2704; J3475; J7050; J7070

== ENCOUNTER 2018-08-06 16:26 | Outpatient (CLI) | payer MEDICARE, OTHER | END 2018-08-06 16:27 | disposition home or self-care (01) | LOC: BICRAD 16:26 | PROVIDERS: ATTEND Internal Medicine Infectious Disease | DX: R05 Cough (principal); I51.7 Cardiomegaly | CPT/HCPCS: 71046 ==

== ENCOUNTER 2018-10-07 10:34 | Outpatient (CLI) | payer MEDICARE, OTHER ==
--- NOTE | 2018-10-07 13:49 | ULT ---
RENAL ULTRASOUND: DATE: 10/07/2018. COMPARISON: 12/23/2017 and 12/08/2013. HISTORY: Mixed incontinence. TECHNIQUE: Multiplanar, cameron scale, sonographic imaging of the kidneys and urinary bladder obtained. FINDINGS: The right kidney measures 9.8 cm in craniocaudal dimension and demonstrates no stone, hydronephrosis, or mass. Prevoid urinary bladder volume is 85 cc. The patient was unable to void for post void residua calcul ation. The left kidney measures 9.6 cm in craniocaudal dimension and demonstrates no discrete hydronephrosis or stone. Multiple left renal cysts are noted measuring up to 1 cm. In the mid pole of the left ki dney, there is a 1.8 x 1.6 x 1.5 cm round hypoechoic lesion which demonstrates mild internal echogeni city, but no internal blood flow. There is a similar lesion within the superior aspect of the left k idney laterally measuring 1.8 x 1.5 x 1.5 cm also demonstrating mild internal echogenicity, but no in ternal blood flow. These nonspecific hypoechoic lesions within the left kidney are not discretely vi sualized on the 12/08/2013 examination but appear grossly unchanged when compared to the 12/23/2017 exa m. These likely represent mildly complex cysts and, thus, followup is advised. IMPRESSION: Stable renal ultrasound as detailed above. Probable complex cyst within the mid and upper pole left kidney for which followup ultrasound in 6-12 months advised. POS: [facility]
== END 2018-10-07 10:35 | disposition home or self-care (01) ==
LOC: BICULT 10:34
PROVIDERS: ATTEND Urology
DX: N28.1 Cyst of kidney, acquired (principal); N39.46 Mixed incontinence; N28.9 Disorder of kidney and ureter, unspecified
CPT/HCPCS: 76770

== ENCOUNTER 2018-12-12 08:52 | Emergency (ER) | payer MEDICARE, OTHER ==
--- NOTE | 2018-12-12 10:37 | RAD ---
PORTABLE CHEST: Date: 12/12/18 PROVIDED CLINICAL HISTORY: Fall. FINDINGS: Comparison with 06/13/18. Cardiac and mediastinal silhouette is within normal limits. No focal consolidation is evident. The [place] nature of this study limits sensitivity for detection of pleural fluid and pneumothorax, without gross evidence for such. The bony thorax appears grossly intact. IMPRESSION: No evidence for an acute cardiopulmonary process with limitations as above. POS: [facility]
--- NOTE | 2018-12-12 10:39 | CT ---
CT OF BRAIN PERFORMED WITHOUT CONTRAST ENHANCEMENT: Date: 12/12/18 COMPARISON: 06/19/15. HISTORY: Patient is status post fall at home with head injury. FINDINGS: There is mild generalized ventricular and sulcal prominence. Right-sided ventriculoperitoneal shunt t ube remains in place. No signs for intracerebral hemorrhage or extra-axial fluid collections. Mastoid air cells and visualized sinuses are clear. IMPRESSION: No acute intracranial abnormalities. POS: [facility]
== END 2018-12-12 10:23 | disposition home or self-care (01) ==
LOC: ERS 08:52
DX: Z04.3 Encounter for examination and observation following other accident (principal); E03.9 Hypothyroidism, unspecified; I10 Essential (primary) hypertension; Z86.73 Personal history of transient ischemic attack (TIA), and cerebral infarction without residual deficits; F03.90 Unspecified dementia, unspecified severity, without behavioral disturbance, psychotic disturbance, mood disturbance, and anxiety; F41.9 Anxiety disorder, unspecified; Z79.899 Other long term (current) drug therapy; W19.XXXA Unspecified fall, initial encounter
CPT/HCPCS: 70450; 71045

== ENCOUNTER 2019-04-26 11:00 | Outpatient (CLI) | payer MEDICARE, OTHER ==
--- NOTE | 2019-04-26 11:48 | ULT ---
US Renal Bilateral STANDARD: 04/26/2019 12:00 AM CLINICAL HISTORY: Renal cysts. STUDY: Renal ultrasound COMPARISON: 10/07/2018 FINDINGS: Right kidney: Echogenicity: Normal. Masses/cysts: None. Hydronephrosis: None. Calcifications: None. Length: 8.8 cm Left kidney: Echogenicity: Normal. Masses/cysts: 2.0 cm anechoic cyst in the midportion. 1.7 cm anechoic cyst in the upper pole Hydronephrosis: None. Calcifications: None. Length: 8.9 cm Limited visualization of the urinary bladder is unremarkable. IMPRESSION: Left renal cysts
== END 2019-04-26 11:01 | disposition home or self-care (01) ==
LOC: BICULT 11:00
PROVIDERS: ATTEND Urology
DX: N28.1 Cyst of kidney, acquired (principal); N39.46 Mixed incontinence; Z87.442 Personal history of urinary calculi
CPT/HCPCS: 76770

== ENCOUNTER 2019-05-20 10:13 | Emergency (ER) | payer MEDICARE, OTHER ==
--- NOTE | 2019-05-20 10:40 | CT ---
EXAM: CT brain without contrast HISTORY: Fall backwards and hit head COMPARISON: 12/12/2018 TECHNIQUE: Multiple contiguous axial images were obtained and a CT of the brain without contrast. FINDINGS: There are scattered hypodensities in the subcortical and periventricular white matter consi stent with small vessel ischemic disease. A right ventriculostomy catheter is seen with its tip in the left lateral ventricle. There is no evidence of hydrocephalus, intracranial hemorrhage, or extra -axial fluid collection. The calvarium and overlying soft tissues are unremarkable. The visualized paranasal sinuses and masto id air cells are well aerated. IMPRESSION: No evidence of acute intracranial abnormality
--- NOTE | 2019-05-20 10:43 | RAD ---
EXAM: Chest one view: HISTORY: Injury following a fall COMPARISON: 12/12/2018 FINDINGS: Stable increased markings bilaterally. Bony demineralization. Right apical pleural thickening. Heart size: Within normal limits. The lungs: Clear of acute process. No evidence for pneumonia, pleural effusion, acute edema, or pneumothorax, or other significant acute process. IMPRESSION: No significant acute intrathoracic disease. Stable from prior study.
--- NOTE | 2019-05-20 10:43 | CT ---
EXAM: CT of the cervical spine without contrast HISTORY: Fall and hit head with neck pain COMPARISON: None TECHNIQUE: Multiple contiguous axial images were obtained in a CT of the cervical spine without contr ast. Sagittal and coronal reformats were performed. FINDINGS: The vertebral bodies demonstrate normal height and alignment without fracture or subluxatio n. No prevertebral soft tissue swelling is seen. Moderate degenerative changes are seen throughout the cervical spine with intervertebral disc space narrowing and osteophyte formation. The posterior facets are well aligned. Normal alignment of the skull base with the cervical spine is seen. The lung apices and cervical soft tissues are unremarkable. IMPRESSION: No evidence of acute osseous abnormality of the cervical spine.
[2019-05-20 11:09] LABS: ALT (SGPT) 85 U/L (8-55); AST (SGOT) 55 U/L (5-34); Albumin 4.4 g/dL (3.4-4.8); Alkaline Phosphatase 116 U/L (40-150); Anion Gap 13 mmol/L (10-20); BUN (Urea Nitrogen) 21 mg/dL (9.8-20.1); Bilirubin, Total 0.5 mg/dL (0.2-1.2); Calc. Creatinine Clearance 0 mL/min (70-130); Calcium 10.1 mg/dL (7.8-10.44); Carbon Dioxide 30 mmol/L (23-31); Chloride 103 mmol/L (98-107); Estimated GFR-MDRD 29; Globulin 2.6 g/dL (2.4-3.5); Glucose 108 mg/dL (83-110); Potassium 4.3 mmol/L (3.5-5.1); Sodium 142 mmol/L (136-145)
[2019-05-20] MEDS ORDERED: Ibuprofen 200 MG TAB ONE (11:10)
[2019-05-20 11:41] LABS: Hemoglobin 13.4 g/dL (12.0-16.0); Lymphocytes 68 % (21-51); MDiff Complete? YES; Mean Corpuscular HGB CONC 32.4 g/dL (32.0-36.0); Mean Corpuscular Hemoglobin 33.5 pg (27.0-31.0); Mean Platelet Volume 8.1 fL (7.4-10.4); Monocytes 2 % (0-10); Neutrophil 30 % (42-75); Platelet Count 213 thou/uL (130-400); Platelet Morphology Comment Appears Adequate; RBC Distribution Width 12.2 % (11.5-14.5); RBC Morphology Normal; Red Blood Cell (RBC) Count 4.01 mill/uL (4.20-5.40); White Blood Cell (WBC) Count 25.6 thou/uL (4.8-10.8)
== END 2019-05-20 11:18 | disposition home or self-care (01) ==
LOC: ERS 10:13
DX: S00.03XA Contusion of scalp, initial encounter (principal); F41.9 Anxiety disorder, unspecified; W19.XXXA Unspecified fall, initial encounter
CPT/HCPCS: 36415; 70450; 71045; 72125; 80053; 84484; 85025; 93005